=== PATIENT | female | born 1985 | race Two or more races ===

== ENCOUNTER 2022-12-10 08:18 | Emergency (ER) | payer OTHER, BC ==
[2022-12-10 08:24] VITALS: TEMP 98
[2022-12-10] MEDS ORDERED: IBUPROFEN 400 MG TAB PO STA (08:39)
[2022-12-10] MEDS ORDERED: ACETAMINOPHEN TAB 500 MG TAB PO STA (08:39)
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
--- NOTE | 2022-12-10 09:10 | XR ---
EXAMINATION TYPE: XR shoulder complete RT DATE OF EXAM: 12/10/2022 CLINICAL HISTORY: pain TECHNIQUE: Three views of the right shoulder are obtained. COMPARISON: None FINDINGS: There is no acute fracture/dislocation evident. The acromioclavicular and glenohumeral nicholas int spaces appear within normal limits. The visualized ribs are intact and unremarkable. IMPRESSION: 1. There is no acute fracture or dislocation. ICD 10 NO FRACTURE, INITIAL EVALUATION
--- NOTE | 2022-12-10 09:11 | XR ---
EXAMINATION TYPE: XR scapula RT DATE OF EXAM: 12/10/2022 COMPARISON: NONE HISTORY: Pain TECHNIQUE: 2 views of the right scapula are submitted. FINDINGS: The scapula appears to be intact without evidence for displaced fracture. No osseous lesion . Soft tissues are grossly unremarkable. IMPRESSION: Negative
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
[2022-12-10 09:42] VITALS: BP 130/78; PULSE 82; RESP 18
== END 2022-12-10 09:42 | disposition home or self-care (01) ==
LOC: EC 08:18
DX: S29.012A Strain of muscle and tendon of back wall of thorax, initial encounter (principal); J45.909 Unspecified asthma, uncomplicated; F41.9 Anxiety disorder, unspecified; Z88.7 Allergy status to serum and vaccine; Z88.5 Allergy status to narcotic agent; Z88.8 Allergy status to other drugs, medicaments and biological substances; V49.40XA Driver injured in collision with unspecified motor vehicles in traffic accident, initial encounter
CPT/HCPCS: 71046; 72125; 99284

== ENCOUNTER 2023-04-24 02:50 | Emergency (ER) | payer BC ==
[2023-04-24] MEDS ORDERED: SODIUM CHLORIDE 0.9% 1,000 ML IV STA ×2 (04:02→06:03)
--- NOTE | 2023-04-24 04:04 | ED ---
Fever HPI - General Chief Complaint: Fever Stated Complaint: Fever/body aches Time Seen by Provider: 04/24/23 03:51 Source: patient, RN notes reviewed, old records reviewed Mode of arrival: ambulatory Limitations: no limitations - History of Present Illness Initial Comments: This is a 37-year-old female to the emergency department today. This patient p resents today for evaluation regards to fever. 5 days of persistent fever. Patient states she has not I will be medications which causes her to have low immune system. Patient states she's had a persistent fever and has been tested for coronavirus negative. Patient denying any cough congestion shortness of breath, no nausea vomiting or diarrhea. MD Complaint: fever, malaise, weakness -: days(s) (5) Temperature Source: oral Context: sick contacts, on immunosuppressant(s) Associated Symptoms: rigors, myalgias Treatments Prior to Arrival: Acetaminophen, Ibuprofen - Related Data Previous Rx's Medication Instructions Recorded Cyclobenzaprine [Flexeril] 10 mg PO TID PRN #18 tablet 12/10/22 Amoxic-Pot Clav 875-125Mg 1 tab PO Q12HR #20 tablet 04/24/23 [Augmentin 875-125] Allergies Allergy/AdvReac Type Severity Reaction Status Date / Time brompheniramine Allergy Unknown Verified 12/10/22 08:24 [From Dimetapp (brompheniramine-PPA)] codeine Allergy Unknown Verified 12/10/22 08:24 dimenhydrinate Allergy Unknown Verified 12/10/22 08:24 [From Dramamine] phenylpropanolamine Allergy Unknown Verified 12/10/22 08:24 [From Dimetapp (brompheniramine-PPA)] tetanus toxoid, adsorbed Allergy Unknown Verified 12/10/22 08:24 Review of Systems ROS Statement: Those systems with pertinent positive or pertinent negative responses have been documented in the HPI. ROS Other: All systems not noted in ROS Statement are negative. Past Medical History Past Medical History: Asthma Additional Past Medical History / Comment(s): Colitis, HS History of Any Multi-Drug Resistant Organisms: None Reported Past Surgical History: Section Past Psychological History: Anxiety Smoking Status: Never smoker Past Alcohol Use History: Occasional Past Drug Use History: None Reported General Exam Limitations: no limitations General appearance: alert, in no apparent distress Head exam: Present: atraumatic, normocephalic, normal inspection Eye exam: Present: normal appearance, PERRL, EOMI. Absent: scleral icterus, conjunctival injection, periorbital swelling ENT exam: Present: normal exam, mucous membranes moist Neck exam: Present: normal inspection. Absent: tenderness, meningismus, lymphadenopathy Respiratory exam: Present: normal lung sounds bilaterally. Absent: respiratory distress, wheezes, rales, rhonchi, stridor Cardiovascular Exam: Present: regular rate, normal rhythm, normal heart sounds. Absent: systolic murmur, diastolic murmur, rubs, gallop, clicks GI/Abdominal exam: Present: soft, normal bowel sounds. Absent: distended, tenderness, guarding, rebound, rigid Extremities exam: Present: normal inspection, full ROM, normal capillary refill. Absent: tenderness, pedal edema, joint swelling, calf tenderness Back exam: Present: normal inspection Neurological exam: Present: alert, oriented X3, CN II-XII intact Psychiatric exam: Present: normal affect, normal mood Skin exam: Present: warm, dry, intact, normal color. Absent: rash Course Vital Signs 04/24/23 04/24/23 04/24/23 03:05 05:00 06:50 Temperature 100 F H 98.2 F 98.0 F Pulse Rate 113 H 92 Respiratory 18 16 Rate Blood Pressure 112/75 111/70 O2 Sat by Pulse 98 100 Oximetry - Reevaluation(s) Reevaluation #1: 04/24/23 05:28 Medical record is reviewed Reevaluation #2: Patient symptoms are improved here in the ER Reevaluation #3: Patient informed results questions answered Reevaluation #4: 04/24/23 05:28 Was pt. sent in by a medical professional or institution (, PA, CAR CONDITIONER, urgent care, hospital, or correction...) When possible be specific @ -no Did you speak to anyone other than the patient for history (EMS, parent, family, police, friend...)? What history was obtained from this source @ -no Did you review nursing and triage notes (agree or disagree)? Why? @ -agree Are old charts reviewed (outside hosp., previous admission, EMS record, old EKG, old radiological studies, urgent care reports/EKG's, correction records)? Report findings @ -yes Differential Diagnosis (chest pain, altered mental status, abdominal pain women, abdominal pain men, vaginal bleeding, weakness, fever, dyspnea, syncope, headache, dizziness, GI bleed, back pain, seizure, CVA, palpatations, mental health, musculoskeletal)? @ -prior EKG interpreted by me (3pts min.). @ -no X-rays interpreted by me (1pt min.). @ -yes CT interpreted by me (1pt min.). @ -no U/S interpreted by me (1pt. min.). @ -no What testing was considered but not performed or refused? (CT, X-rays, U/S, labs)? Why? @ -none What meds were considered but not given or refused? Why? @ -none Did you discuss the management of the patient with other professionals (professionals i.e. , PA, CAR CONDITIONER, lab, RT, psych nurse, rn social services, curing oven tender, teacher, staff mine warfare officer, case reviewer)? Give summary @ -no Was smoking cessation discussed for >3mins.? @ -no Was critical care preformed (if so, how long)? @ -no Were there social determinants of health that impacted care today? How? (Homelessness, low income, unemployed, alcoholism, drug addiction, transportation, low edu. Level, literacy, decrease access to med. care, senior living, rehab)? @ -none Was there de-escalation of care discussed even if they declined (Discuss DNR or withdrawal of care, Hospice)? DNR status @ -no What co-morbidities impacted this encounter? (DM, HTN, Smoking, COPD, CAD, Cancer, CVA, ARF, Chemo, Hep., AIDS, mental health diagnosis, sleep apnea, morbid obesity)? @ -none Was patient admitted / discharged? Hospital course, mention meds given and route, prescriptions, significant lab abnormalities, going to OR and other pertinent info. @ - 37 female to the emergency department with persistent fever patient does appear to have pneumonia which is found here in the ER. Patient also symptoms of cellulitis to the nose Patient is improved symptoms here in the ER, feeling improved and can be discharged home Discharge Undiagnosed new problem with uncertain prognosis? @ -no Drug Therapy requiring intensive monitoring for toxicity (Heparin, Nitro, Ins ulin, Cardizem)? @ -no Were any procedures done? @ -no Diagnosis/symptom? @ -Fever with pneumonia, cellulitis Acute, or Chronic, or Acute on Chronic? @ -Acute Uncomplicated (without systemic symptoms) or Complicated (systemic symptoms)? @ -Complicated Side effects of treatment? @ -no Exacerbation, Progression, or Severe Exacerbation? @ -exacerbation Poses a threat to life or bodily function? How? (Chest pain, [place], [place], pneumonia, PE, COPD, DKA, ARF, appy, cholecystitis, CVA, Diverticulitis, Homicidal, Suicidal, threat to staff... and all critical care pts) @ -yes with significant sepsis Reevaluation #5: 04/24/23 05:28 Differential Fever: Pneumonia, viral URI, endocarditis, myocarditis, pericarditis, otitis, sinusitis, peritonsillar Abscess, retropharyngeal Abscess, epiglottitis, peritonitis, appendicitis, Renate cystitis, diverticulitis, hepatitis, colitis, UTI, PID, TOA, pyelonephritis, prostatitis, epididymitis, meningitis, encepha litis, pulmonary embolism, CVA, thyroid storm, pancreatitis, adrenal crisis, cavernous sinus thrombosis, this is not meant to be an all-inclusive list. Medical Decision Making - Medical Decision Making 37 female to the emergency department with persistent fever patient does appear to have pneumonia which is found here in the ER. Patient also symptoms of cellulitis to the nose Patient is improved symptoms here in the ER, feeling improved and can be discharged home - Lab Data Result diagrams: 04/24/23 04:40 04/24/23 04:40 Lab Results 04/24/23 04/24/23 04/24/23 Range/Units 04:40 04:40 04:40 WBC 8.8 (3.8-10.6) k/uL RBC 4.20 (3.80-5.40) m/uL Hgb 12.6 (11.4-16.0) gm/dL Hct 37.1 (34.0-46.0) % MCV 88.4 (80.0-100.0) fL MCH 30.0 (25.0-35.0) pg MCHC 33.9 (31.0-37.0) g/dL RDW 12.8 (11.5-15.5) % Plt Count 198 (150-450) k/uL MPV 7.8 Neutrophils % 85 % Lymphocytes % 9 % Monocytes % 4 % Eosinophils % 1 % Basophils % 0 % Neutrophils # 7.5 (1.3-7.7) k/uL Lymphocytes # 0.8 L (1.0-4.8) k/uL Monocytes # 0.3 (0-1.0) k/uL Eosinophils # 0.1 (0-0.7) k/uL Basophils # 0.0 (0-0.2) k/uL Sodium 133 L (137-145) mmol/L Potassium 4.0 (3.5-5.1) mmol/L Chloride 104 (98-107) mmol/L Carbon Dioxide 21 L (22-30) mmol/L Anion Gap 8 mmol/L BUN 9 (7-17) mg/dL Creatinine 0.58 (0.52-1.04) mg/dL Est GFR (CKD-EPI)AfAm >90 (>60 ml/min/1.73 sqM) Est GFR (CKD-EPI)NonAf >90 (>60 ml/min/1.73 sqM) Glucose 115 H (74-99) mg/dL Plasma Lactic Acid Ronnie 0.7 (0.7-2.0) mmol/L Calcium 8.2 L (8.4-10.2) mg/dL Phosphorus 3.8 (2.5-4.5) mg/dL Magnesium 2.0 (1.6-2.3) mg/dL Total Bilirubin 0.5 (0.2-1.3) mg/dL AST 82 H (14-36) U/L ALT 46 H (4-34) U/L Alkaline Phosphatase 75 (38-126) U/L Total Protein 6.0 L (6.3-8.2) g/dL Albumin 3.1 L (3.5-5.0) g/dL Urine Color Urine Appearance (Clear) Urine pH (5.0-8.0) Ur Specific Clymer (1.001-1.035) Urine Protein (Negative) Urine Glucose (UA) (Negative) Urine Ketones (Negative) Urine Blood (Negative) Urine Nitrite (Negative) Urine Bilirubin (Negative) Urine Urobilinogen (<2.0) mg/dL Ur Leukocyte Esterase (Negative) Urine RBC (0-5) /hpf Urine WBC (0-5) /hpf Ur Squamous Epith Cells (0-4) /hpf Urine Bacteria (None) /hpf Urine Mucus (None) /hpf 04/24/23 Range/Units 06:24 WBC (3.8-10.6) k/uL RBC (3.80-5.40) m/uL Hgb (11.4-16.0) gm/dL Hct (34.0-46.0) % MCV (80.0-100.0) fL MCH (25.0-35.0) pg MCHC (31.0-37.0) g/dL RDW (11.5-15.5) % Plt Count (150-450) k/uL MPV Neutrophils % % Lymphocytes % % Monocytes % % Eosinophils % % Basophils % % Neutrophils # (1.3-7.7) k/uL Lymphocytes # (1.0-4.8) k/uL Monocytes # (0-1.0) k/uL Eosinophils # (0-0.7) k/uL Basophils # (0-0.2) k/uL Sodium (137-145) mmol/L Potassium (3.5-5.1) mmol/L Chloride (98-107) mmol/L Carbon Dioxide (22-30) mmol/L Anion Gap mmol/L BUN (7-17) mg/dL Creatinine (0.52-1.04) mg/dL Est GFR (CKD-EPI)AfAm (>60 ml/min/1.73 sqM) Est GFR (CKD-EPI)NonAf (>60 ml/min/1.73 sqM) Glucose (74-99) mg/dL Plasma Lactic Acid Ronnie (0.7-2.0) mmol/L Calcium (8.4-10.2) mg/dL Phosphorus (2.5-4.5) mg/dL Magnesium (1.6-2.3) mg/dL Total Bilirubin (0.2-1.3) mg/dL AST (14-36) U/L ALT (4-34) U/L Alkaline Phosphatase (38-126) U/L Total Protein (6.3-8.2) g/dL Albumin (3.5-5.0) g/dL Urine Color Yellow Urine Appearance Clear (Clear) Urine pH 5.5 (5.0-8.0) Ur Specific [place] 1.011 (1.001-1.035) Urine Protein Negative (Negative) Urine Glucose (UA) Negative (Negative) Urine Ketones Negative (Negative) Urine Blood Large H (Negative) Urine Nitrite Negative (Negative) Urine Bilirubin Negative (Negative) Urine Urobilinogen <2.0 (<2.0) mg/dL Ur Leukocyte Esterase Negative (Negative) Urine RBC 24 H (0-5) /hpf Urine WBC 2 (0-5) /hpf Ur Squamous Epith Cells <1 (0-4) /hpf Urine Bacteria Occasional H (None) /hpf Urine Mucus Rare H (None) /hpf - Radiology Data Radiology results: report reviewed (Chest x-ray is concerning for pneumonia), image reviewed Disposition Clinical Impression: Fever, Cellulitis, Pneumonia, Weakness Disposition: HOME SELF-CARE Condition: Good Instructions (If sedation given, give patient instructions): Fever in Adults (ED) Prescriptions: Amoxic-Pot Clav 875-125Mg [Augmentin 875-125] 1 tab PO Q12HR #20 tablet Is patient prescribed a controlled substance at d/c from ED?: No Referrals: Humberto Vanessa MD [Primary Care Provider] - 1-2 days Time of Disposition: 06:45
[2023-04-24 04:54] LABS: Basophils % (A) 0 %; Eosinophils # (A) 0.1 k/uL (0-0.7); Eosinophils % (A) 1 %; HCT 37.1 % (34.0-46.0); HGB 12.6 gm/dL (11.4-16.0); Lymphocytes # (A) 0.8 k/uL (1.0-4.8); Lymphocytes % (A) 9 %; MCHC 33.9 g/dL (31.0-37.0); MCV 88.4 fL (80.0-100.0); Mean Platelet Volume 7.8; Monocytes # (A) 0.3 k/uL (0-1.0); Monocytes % (A) 4 %; Neutrophils # (A) 7.5 k/uL (1.3-7.7); Neutrophils % (A) 85 %; Platelet Count 198 k/uL (150-450); RDW 12.8 % (11.5-15.5); WBC 8.8 k/uL (3.8-10.6)
[2023-04-24 05:06] LABS: ALT 46 U/L (4-34); AST 82 U/L (14-36); African American GFR (CKD) >90 (>60 ml/min/1.73 sqM); Albumin 3.1 g/dL (3.5-5.0); Alkaline Phosphatase 75 U/L (38-126); Anion Gap 8 mmol/L; Blood Urea Nitrogen 9 mg/dL (7-17); Calcium 8.2 mg/dL (8.4-10.2); Carbon Dioxide 21 mmol/L (22-30); Chloride 104 mmol/L (98-107); Glucose 115 mg/dL (74-99); Non-African American GFR(CKD) >90 (>60 ml/min/1.73 sqM); Phosphorus 3.8 mg/dL (2.5-4.5); Sodium 133 mmol/L (137-145); Total Bilirubin 0.5 mg/dL (0.2-1.3)
[2023-04-24] MEDS ORDERED: ACETAMINOPHEN IV (For NPO) 1,000 MG in EMPTY BAG 1 BAG IVPB STA (06:03)
[2023-04-24] MEDS ORDERED: IBUPROFEN IV 800 MG in SODIUM CHLORIDE 0.9% 250 ML IV ONE (06:03)
--- NOTE | 2023-04-24 06:38 | XR ---
EXAMINATION TYPE: XR chest 1V portable DATE OF EXAM: 04/24/2023 4:22 AM COMPARISON: Chest radiographs from 12/10/2022 TECHNIQUE: XR chest 1V portable Portable AP radiograph of the chest. CLINICAL INDICATION:Female, 37 years old with history of cough; FINDINGS: Lungs/Pleura: No pleural effusion or pneumothorax. Medial left upper lobe consolidation. Pulmonary vascularity: Unremarkable. Heart/mediastinum: Cardiomediastinal silhouette is unremarkable. Musculoskeletal: No acute osseous pathology. IMPRESSION: Left upper lobe consolidation concerning for pneumonia.
[2023-04-24 06:40] LABS: Appearance,Urine Clear (Clear); Bacteria,Urine Occasional /hpf; Bilirubin,Urine Negative (Negative); Blood,Urine Large (Negative); Glucose,Urine (UA) Negative (Negative); Ketones,Urine Negative (Negative); Leukocyte Esterase,Urine Negative (Negative); Mucus,Urine Rare /hpf; Nitrite,Urine Negative (Negative); PH, Urine 5.5 (5.0-8.0); Protein,Urine Negative (Negative); RBC,Urine 24 /hpf (0-5); Specific Gravity,Urine 1.011 (1.001-1.035); Squamous Epithelial Cell,Urine <1 /hpf (0-4); Urobilinogen,Urine <2.0 mg/dL (<2.0); WBC,Urine 2 /hpf (0-5)
[2023-04-24 06:42] LABS: Color,Urine Yellow
[2023-04-24] MEDS ORDERED: MUPIROCIN 2% OINT 22 GM TUBE TOPICAL STA (06:46)
[2023-04-24] MEDS ORDERED: AMOXIC-POT CLAV 875-125MG 1 EACH TAB PO STA (06:46)
[2023-04-24 06:51] VITALS: BP 111/70; PULSE 92; RESP 16; TEMP 98
== END 2023-04-24 07:40 | disposition home or self-care (01) ==
LOC: EC 02:50
DX: J18.9 Pneumonia, unspecified organism (principal); J34.0 Abscess, furuncle and carbuncle of nose; R53.1 Weakness; B96.89 Other specified bacterial agents as the cause of diseases classified elsewhere; J45.909 Unspecified asthma, uncomplicated; Z88.5 Allergy status to narcotic agent; Z88.7 Allergy status to serum and vaccine; Z88.8 Allergy status to other drugs, medicaments and biological substances
CPT/HCPCS: 36415; 80053; 83605; 83735; 84100; 85025; 81001; 87040; 71045; 99284; 96365; 96367; 96361; J0131; J1741

== ENCOUNTER 2023-09-11 16:14 | Inpatient (IN) | payer BC ==
[2023-09-11] MEDS ORDERED: ONDANSETRON 4 MG/2 ML VIAL IVP STA (16:32)
[2023-09-11] MEDS ORDERED: SODIUM CHLORIDE 0.9% 1,000 ML IV STA (16:32)
[2023-09-11] MEDS ORDERED: MORPHINE SULFATE 4 MG/ML SYRINGE IV STA (16:32)
[2023-09-11] MEDS ORDERED: ACETAMINOPHEN IV (For NPO) 1,000 MG in EMPTY BAG 1 BAG IVPB STA (16:33)
--- NOTE | 2023-09-11 16:34 | ED ---
Abdominal Pain HPI - General Chief Complaint: Vaginal Bleeding Stated Complaint: Vaginal Bleeding Time Seen by Provider: 09/11/23 16:16 Source: EMS, RN notes reviewed, old records reviewed Mode of arrival: EMS Limitations: no limitations - History of Present Illness Initial Comments: This is a 38-year-old female to the emergency department for evaluation today. Patient presents today for evaluation regards to significant amount of vaginal bleeding. Vaginal history. And having significant vaginal bleeding today. Patient did feel ripping sensation prior to this bleeding while bending over. MD Complaint: abdominal pain -: days(s) Location: diffuse, suprapubic Radiation: suprapubic Severity: severe Severity scale (1-10): 10 Quality: stabbing Consistency: constant Worsens With: nothing Associated Symptoms: denies other symptoms Treatments Prior to Arrival: other (0) - Related Data Home Medications Medication Instructions Recorded Confirmed No Known Home Medications 09/11/23 09/11/23 Allergies Allergy/AdvReac Type Severity Reaction Status Date / Time brompheniramine Allergy Unknown Verified 09/11/23 18:49 [From Dimetapp (brompheniramine-PPA)] codeine Allergy Unknown Verified 09/11/23 18:49 dimenhydrinate Allergy Unknown Verified 09/11/23 18:49 [From Dramamine] phenylpropanolamine Allergy Unknown Verified 09/11/23 18:49 [From Dimetapp (brompheniramine-PPA)] tetanus toxoid, adsorbed Allergy Unknown Verified 09/11/23 18:49 Review of Systems ROS Statement: Those systems with pertinent positive or pertinent negative responses have been documented in the HPI. ROS Other: All systems not noted in ROS Statement are negative. Past Medical History Past Medical History: Asthma Additional Past Medical History / Comment(s): Colitis, HS History of Any Multi-Drug Resistant Organisms: None Reported Past Surgical History: Section, Hysterectomy Past Psychological History: Anxiety Smoking Status: Never smoker Past Alcohol Use History: Occasional Past Drug Use History: None Reported General Exam Limitations: no limitations General appearance: alert, in no apparent distress, anxious, in distress Head exam: Present: atraumatic, normocephalic, normal inspection Eye exam: Present: normal appearance, PERRL, EOMI. Absent: scleral icterus, conjunctival injection, periorbital swelling ENT exam: Present: normal exam, mucous membranes moist Neck exam: Present: normal inspection. Absent: tenderness, meningismus, lymphadenopathy Respiratory exam: Present: normal lung sounds bilaterally. Absent: respiratory distress, wheezes, rales, rhonchi, stridor Cardiovascular Exam: Present: regular rate, normal rhythm, normal heart sounds. Absent: systolic murmur, diastolic murmur, rubs, gallop, clicks GI/Abdominal exam: Present: soft, normal bowel sounds. Absent: distended, tenderness, guarding, rebound, rigid Extremities exam: Present: normal inspection, full ROM, normal capillary refill. Absent: tenderness, pedal edema, joint swelling, calf tenderness Back exam: Present: normal inspection Neurological exam: Present: alert, oriented X3, CN II-XII intact Psychiatric exam: Present: normal affect, normal mood Skin exam: Present: warm, dry, intact, normal color. Absent: rash Course Vital Signs 09/11/23 09/11/23 09/11/23 16:17 16:30 17:00 Temperature 99.1 F Pulse Rate 114 H 112 H 110 H Respiratory 20 18 18 Rate Blood Pressure 124/79 123/79 71/46 O2 Sat by Pulse 98 98 99 Oximetry 09/11/23 09/11/23 09/11/23 17:49 18:09 18:30 Temperature 98.6 F 98.3 F 98.2 F Pulse Rate 101 H 112 H 102 H Respiratory 16 18 18 Rate Blood Pressure 102/70 80/64 95/57 O2 Sat by Pulse 98 97 Oximetry - Reevaluation(s) Reevaluation #1: 09/11/23 17:34 Record is reviewed Reevaluation #2: 09/11/23 17:34 Patient having significant symptoms here in the ER syncope, near syncope. Continues to repeat that she is going to pass out Patient was placed in Trendelenburg position was significantly low blood pressure Reevaluation #3: 09/11/23 18:42 Patient informed results questions answered Reevaluation #4: Was pt. sent in by a medical professional or institution (, PA, NETWORK PLANNER, urgent care, hospital, or long-term...) When possible be specific @ -no Did you speak to anyone other than the patient for history (EMS, parent, family, police, friend...)? What history was obtained from this source @ -no Did you review nursing and triage notes (agree or disagree)? Why? @ -agree Are old charts reviewed (outside hosp., previous admission, EMS record, old EKG, old radiological studies, urgent care reports/EKG's, long-term records)? Report findings @ -yes Differential Diagnosis (chest pain, altered mental status, abdominal pain women, abdominal pain men, vaginal bleeding, weakness, fever, dyspnea, syncope, headache, dizziness, GI bleed, back pain, seizure, CVA, palpatations, mental health, musculoskeletal)? @ -prior EKG interpreted by me (3pts min.). @ -yes X-rays interpreted by me (1pt min.). @ -no CT interpreted by me (1pt min.). @ -yes positive for vaginal bleeding U/S interpreted by me (1pt. min.). @ -no What testing was considered but not performed or refused? (CT, X-rays, U/S, labs)? Why? @ -none What meds were considered but not given or refused? Why? @ -none Did you discuss the management of the patient with other professionals (professionals i.e. , PA, NETWORK PLANNER, lab, RT, psych nurse, manager social responsibility, college of education dean, teacher, international first officer, telehealth case manager)? Give summary @ -no Was smoking cessation discussed for >3mins.? @ -no Were there social determinants of health that impacted care today? How? (Homelessness, low income, unemployed, alcoholism, drug addiction, transportation, low edu. Level, literacy, decrease access to med. care, long-term, rehab)? @ -none Was there de-escalation of care discussed even if they declined (Discuss DNR or withdrawal of care, Hospice)? DNR status @ -no What co-morbidities impacted this encounter? (DM, HTN, Smoking, COPD, CAD, Cancer, CVA, ARF, Chemo, Hep., AIDS, mental health diagnosis, sleep apnea, morbid obesity)? @ -none Was patient admitted / discharged? Hospital course, mention meds given and route, prescriptions, significant lab abnormalities, going to OR and other pertinent info. @ - 38 female to the ER for evaluation of significant severe vaginal bleeding after hysterectomy. Patient has significant bleeding multiple episodes of syncope near syncope here in the ER, patient will be admitted for continued mon itoring and surgical evaluation Admitted Was critical care preformed (if so, how long)? @ -yes Undiagnosed new problem with uncertain prognosis? @ -no Drug Therapy requiring intensive monitoring for toxicity (Heparin, Nitro, Insulin, Cardizem)? @ -no Were any procedures done? @ -no Diagnosis/symptom? @ -Acute vaginal bleeding postoperative bleeding syncope Acute, or Chronic, or Acute on Chronic? @ -Acute Uncomplicated (without systemic symptoms) or Complicated (systemic symptoms)? @ -Complicated Side effects of treatment? @ -no Exacerbation, Progression, or Severe Exacerbation? @ -exacerbation Poses a threat to life or bodily function? How? (Chest pain, USA, AL, pneumonia, PE, COPD, DKA, ARF, appy, cholecystitis, CVA, Diverticulitis, Homicidal, Suicidal, threat to staff... and all critical care pts) @ -yes Reevaluation #5: 09/11/23 17:34 Differential Syncope: Valvular disease, hypertrophic cardiomyopathy, pulmonary embolism, tamponade, tachycardia, bradycardia, AL, hypovolemia, hemorrhage, dissection, anemia, intracranial hemorrhage, seizure, hypoglycemia, carbon monoxide poisoning, this is not meant to be an all-inclusive list. - Consultations Consultation #1: Spoke with Dr. Bernstein who will evaluate patient in the emergency department Dr. Bernstein did evaluate the patient in the emergency department Dr. Bernstein who will admit the patient to the hospital Medical Decision Making - Medical Decision Making 38 female to the ER for evaluation of significant severe vaginal bleeding after hysterectomy. Patient has significant bleeding multiple episodes of syncope near syncope here in the ER, patient will be admitted for continued monitoring and surgical evaluation - Lab Data Result diagrams: 09/13/23 06:27 09/12/23 07:08 Lab Results 09/11/23 09/11/23 09/11/23 Range/Units 16:30 16:34 16:34 WBC 10.1 (3.8-10.6) k/uL RBC 4.36 (3.80-5.40) m/uL Hgb 12.7 (11.4-16.0) gm/dL Hct 37.1 (34.0-46.0) % MCV 85.0 (80.0-100.0) fL MCH 29.2 (25.0-35.0) pg MCHC 34.4 (31.0-37.0) g/dL RDW 12.4 (11.5-15.5) % Plt Count 339 (150-450) k/uL MPV 7.4 Neutrophils % 58 % Lymphocytes % 33 % Monocytes % 4 % Eosinophils % 3 % Basophils % 0 % Neutrophils # 5.9 (1.3-7.7) k/uL Lymphocytes # 3.3 (1.0-4.8) k/uL Monocytes # 0.4 (0-1.0) k/uL Eosinophils # 0.3 (0-0.7) k/uL Basophils # 0.0 (0-0.2) k/uL PT 9.9 L (10.0-12.5) sec INR 0.9 (<1.2) APTT 24.3 (22.0-30.0) sec Sodium (137-145) mmol/L Potassium (3.5-5.1) mmol/L Chloride (98-107) mmol/L Carbon Dioxide (22-30) mmol/L Anion Gap mmol/L BUN (7-17) mg/dL Creatinine (0.52-1.04) mg/dL Est GFR (CKD-EPI)AfAm (>60 ml/min/1.73 sqM) Est GFR (CKD-EPI)NonAf (>60 ml/min/1.73 sqM) Glucose (74-99) mg/dL Plasma Lactic Acid Ronnie (0.7-2.0) mmol/L Calcium (8.4-10.2) mg/dL Phosphorus (2.5-4.5) mg/dL Magnesium (1.6-2.3) mg/dL Total Bilirubin (0.2-1.3) mg/dL AST (14-36) U/L ALT (4-34) U/L Alkaline Phosphatase (38-126) U/L Troponin I (0.000-0.034) ng/mL Total Protein (6.3-8.2) g/dL Albumin (3.5-5.0) g/dL Blood Type A Positive Blood Type Confirm Blood Type Recheck No Previous Record Bld Type Recheck Status CABO Indicated Antibody Screen NEGATIVE Crossmatch See Detail Spec Expiration Date 09/14/2023 - 232909/11/23 09/11/23 09/11/23 Range/Units 16:34 16:34 16:34 WBC (3.8-10.6) k/uL RBC (3.80-5.40) m/uL Hgb (11.4-16.0) gm/dL Hct (34.0-46.0) % MCV (80.0-100.0) fL MCH (25.0-35.0) pg MCHC (31.0-37.0) g/dL RDW (11.5-15.5) % Plt Count (150-450) k/uL MPV Neutrophils % % Lymphocytes % % Monocytes % % Eosinophils % % Basophils % % Neutrophils # (1.3-7.7) k/uL Lymphocytes # (1.0-4.8) k/uL Monocytes # (0-1.0) k/uL Eosinophils # (0-0.7) k/uL Basophils # (0-0.2) k/uL PT (10.0-12.5) sec INR (<1.2) APTT (22.0-30.0) sec Sodium 135 L (137-145) mmol/L Potassium 3.7 (3.5-5.1) mmol/L Chloride 105 (98-107) mmol/L Carbon Dioxide 23 (22-30) mmol/L Anion Gap 7 mmol/L BUN 19 H (7-17) mg/dL Creatinine 0.68 (0.52-1.04) mg/dL Est GFR (CKD-EPI)AfAm >90 (>60 ml/min/1.73 sqM) Est GFR (CKD-EPI)NonAf >90 (>60 ml/min/1.73 sqM) Glucose 110 H (74-99) mg/dL Plasma Lactic Acid Ronnie 1.2 (0.7-2.0) mmol/L Calcium 8.9 (8.4-10.2) mg/dL Phosphorus 2.6 (2.5-4.5) mg/dL Magnesium 1.8 (1.6-2.3) mg/dL Total Bilirubin 0.5 (0.2-1.3) mg/dL AST 25 (14-36) U/L ALT 20 (4-34) U/L Alkaline Phosphatase 52 (38-126) U/L Troponin I <0.012 (0.000-0.034) ng/mL Total Protein 6.3 (6.3-8.2) g/dL Albumin 3.7 (3.5-5.0) g/dL Blood Type Blood Type Confirm Blood Type Recheck Bld Type Recheck Status Antibody Screen Crossmatch Spec Expiration Date 09/11/23 Range/Units 16:35 WBC (3.8-10.6) k/uL RBC (3.80-5.40) m/uL Hgb (11.4-16.0) gm/dL Hct (34.0-46.0) % MCV (80.0-100.0) fL MCH (25.0-35.0) pg MCHC (31.0-37.0) g/dL RDW (11.5-15.5) % Plt Count (150-450) k/uL MPV Neutrophils % % Lymphocytes % % Monocytes % % Eosinophils % % Basophils % % Neutrophils # (1.3-7.7) k/uL Lymphocytes # (1.0-4.8) k/uL Monocytes # (0-1.0) k/uL Eosinophils # (0-0.7) k/uL Basophils # (0-0.2) k/uL PT (10.0-12.5) sec INR (<1.2) APTT (22.0-30.0) sec Sodium (137-145) mmol/L Potassium (3.5-5.1) mmol/L Chloride (98-107) mmol/L Carbon Dioxide (22-30) mmol/L Anion Gap mmol/L BUN (7-17) mg/dL Creatinine (0.52-1.04) mg/dL Est GFR (CKD-EPI)AfAm (>60 ml/min/1.73 sqM) Est GFR (CKD-EPI)NonAf (>60 ml/min/1.73 sqM) Glucose (74-99) mg/dL Plasma Lactic Acid Ronnie (0.7-2.0) mmol/L Calcium (8.4-10.2) mg/dL Phosphorus (2.5-4.5) mg/dL Magnesium (1.6-2.3) mg/dL Total Bilirubin (0.2-1.3) mg/dL AST (14-36) U/L ALT (4-34) U/L Alkaline Phosphatase (38-126) U/L Troponin I (0.000-0.034) ng/mL Total Protein (6.3-8.2) g/dL Albumin (3.5-5.0) g/dL Blood Type Blood Type Confirm A Positive Blood Type Recheck Bld Type Recheck Status Antibody Screen Crossmatch Spec Expiration Date - EKG Data -: EKG Interpreted by Me (EKG is sinus tachycardia 109 [place] 139 QRS 80 QTC 394) - Radiology Data Radiology results: report reviewed (CT abdomen and pelvis does show positive acute and subacute bleed), image reviewed Critical Care Time Critical Care Time: Yes Total Critical Care Time: 31 Disposition Clinical Impression: Postoperative vaginal bleeding, Postoperative vaginal bleeding following genitourinary procedure, Syncope, Shock Disposition: ADMITTED IP TO THIS HOSP Condition: Critical Is patient prescribed a controlled substance at d/c from ED?: No Time of Disposition: 18:40
[2023-09-11 16:48] LABS: Basophils % (A) 0 %; Eosinophils # (A) 0.3 k/uL (0-0.7); Eosinophils % (A) 3 %; HCT 37.1 % (34.0-46.0); HGB 12.7 gm/dL (11.4-16.0); Lymphocytes # (A) 3.3 k/uL (1.0-4.8); Lymphocytes % (A) 33 %; MCH 29.2 pg (25.0-35.0); MCHC 34.4 g/dL (31.0-37.0); Mean Platelet Volume 7.4; Monocytes # (A) 0.4 k/uL (0-1.0); Monocytes % (A) 4 %; Neutrophils # (A) 5.9 k/uL (1.3-7.7); Neutrophils % (A) 58 %; Platelet Count 339 k/uL (150-450); RBC 4.36 m/uL (3.80-5.40); RDW 12.4 % (11.5-15.5); WBC 10.1 k/uL (3.8-10.6)
[2023-09-11 16:58] LABS: INR 0.9 (<1.2); Partial Thromboplastin Time 24.3 sec (22.0-30.0); Prothrombin Time 9.9 sec (10.0-12.5)
[2023-09-11 16:59] LABS: ALT 20 U/L (4-34); AST 25 U/L (14-36); African American GFR (CKD) >90 (>60 ml/min/1.73 sqM); Albumin 3.7 g/dL (3.5-5.0); Alkaline Phosphatase 52 U/L (38-126); Anion Gap 7 mmol/L; Blood Urea Nitrogen 19 mg/dL (7-17); Calcium 8.9 mg/dL (8.4-10.2); Carbon Dioxide 23 mmol/L (22-30); Chloride 105 mmol/L (98-107); Glucose 110 mg/dL (74-99); Magnesium 1.8 mg/dL (1.6-2.3); Non-African American GFR(CKD) >90 (>60 ml/min/1.73 sqM); Phosphorus 2.6 mg/dL (2.5-4.5); Potassium 3.7 mmol/L (3.5-5.1); Sodium 135 mmol/L (137-145); Total Bilirubin 0.5 mg/dL (0.2-1.3); Total Protein 6.3 g/dL (6.3-8.2)
--- NOTE | 2023-09-11 17:11 | CT ---
EXAMINATION TYPE: CT abdomen pelvis w con DATE OF EXAM: 09/11/2023 COMPARISON: The HISTORY: vaginal bleeding [address] DLP: 1083.8 mGycm CONTRAST: CT scan of the abdomen and pelvis is performed without Oral Contrast and with IV Contrast, patient in jected with 100 mL of Isovue 300. FINDINGS: LUNG BASES-: No visible nodule. No infiltrate. LIVER/GB: Hysterectomy changes noted No space occupying hepatic lesion. Biliary tree is of normal caliber. PANCREAS: No inflammation. No distinct mass. SPLEEN: No splenic enlargement. No lesion seen. ADRENALS: No nodule. No thickening. KIDNEYS/BLADDER: No hydronephrosis. No nephrolithiasis. No distinct renal mass. Urinary bladder g rossly unremarkable. BOWEL: Normal appendix. Normal bowel caliber. No inflammation. GENITAL ORGANS: At The site of hysterectomy there is a collection noted measuring approximately 9.8 x 6.1 x 6.1 cm with Hounsfield unit measurement of approximately 45 felt to reflect underlying nonacut e hemorrhage. There is a focus of hyperdensity seen on axial image 67 of 109 which may reflect an are a of active hemorrhage. There is also peripheral hyperdensity noted. Infected collection felt to be l ess likely LYMPH NODES: No greater than 1cm abdominal or pelvic lymph nodes are appreciated. AORTA: No significant abnormality. OSSEOUS STRUCTURES: No significant abnormality is seen. OTHER: No significant additional abnormality is seen. IMPRESSION: 1. At The site of hysterectomy there is a collection noted measuring approximately 9.8 x 6.1 x 6.1 cm with Hounsfield unit measurement of approximately 45 felt to reflect underlying nonacute hemorrhage. There is a focus of hyperdensity seen on axial image 67 of 109 which may reflect an area of active h emorrhage. There is also peripheral hyperdensity noted. Infected collection felt to be less likely al though not entirely excluded.
[2023-09-11] MEDS ORDERED: NALOXONE 0.4 MG/ML 1 ML VIAL IV PRN (18:38)
[2023-09-11] MEDS ORDERED: MORPHINE SULFATE 4 MG/ML SYRINGE IV PRN (18:38)
[2023-09-11] MEDS ORDERED: ONDANSETRON 4 MG/2 ML VIAL IVP PRN (18:38)
[2023-09-11] MEDS ORDERED: SODIUM CHLORIDE 0.9% 1,000 ML IV SCH (18:45)
[2023-09-11] MEDS ORDERED: PANTOPRAZOLE 40 MG/10 ML VIAL IV SCH (18:45)
[2023-09-11] MEDS ORDERED: LACTATED RINGERS 1,000 ML IV ONE (18:48)
[2023-09-11] MEDS ORDERED: ACETAMINOPHEN IV (For NPO) 1,000 MG in EMPTY BAG 1 BAG IVPB PRN (18:49)
--- NOTE | 2023-09-11 19:07 | P.HPOB ---
History of Present Illness H&P Date: 09/11/23 Chief Complaint: Vaginal bleeding, status post hysterectomy This patient is a 38-year-old 1 para 1 female who presented to [facility] emergency department with complaints of vaginal bleeding that started earlier this afternoon. Patient states that she had a robotic this did vaginal hysterectomy approximately [address] Haywood at [facility]. Patient states that this hysterectomy was done for an abnormal Pap smear/YOGI-3. Patient currently did well postoperatively and did see her physician for a vaginal exam in the office and apparently all was well with the exception of some sutures. Patient states that this afternoon she bent over and began having profuse bright red vaginal bleeding. Patient was subsequently brought to the emergency department for evaluation. Patient denies intercourse or anything placed per vagina. 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 She does not see a local machine operator replanter here in [place]. Review of Systems Constitutional: Reports as per HPI Gastrointestinal: Reports as per HPI Genitourinary: Reports as per HPI, Reports abnormal vaginal bleeding Psychiatric: Reports anxiety Past Medical History Past Medical History: Asthma Additional Past Medical History / Comment(s): Colitis, HS History of Any Multi-Drug Resistant Organisms: None Reported Past Surgical History: Section, Hysterectomy Past Anesthesia/Blood Transfusion Reactions: No Reported Reaction Past Psychological History: Anxiety Smoking Status: Never smoker Past Alcohol Use History: Occasional Past Drug Use History: None Reported Medications and Allergies Home Medications Medication Instructions Recorded Confirmed Type No Known Home Medications 09/11/23 09/11/23 History Allergies Allergy/AdvReac Type Severity Reaction Status Date / Time brompheniramine Allergy Unknown Verified 09/11/23 18:49 [From Dimetapp (brompheniramine-PPA)] codeine Allergy Unknown Verified 09/11/23 18:49 dimenhydrinate Allergy Unknown Verified 09/11/23 18:49 [From Dramamine] phenylpropanolamine Allergy Unknown Verified 09/11/23 18:49 [From Dimetapp (brompheniramine-PPA)] tetanus toxoid, adsorbed Allergy Unknown Verified 09/11/23 18:49 Exam Vital Signs Temp Pulse Resp BP Pulse Ox 09/11/23 18:09 98.3 F 112 H 18 80/64 09/11/23 17:49 98.6 F 101 H 16 102/70 98 09/11/23 17:00 110 H 18 71/46 99 09/11/23 16:30 112 H 18 123/79 98 09/11/23 16:17 99.1 F 114 H 20 124/79 98 Intake and Output 09/11/23 09/11/23 09/11/23 06:59 14:59 22:59 Intake Total 0 Balance 0 Intake: Blood Product 0 Unit 0 Other: Weight 86.183 kg - OBG Physical Exam Abdomen: bowel sounds normal (Abdominoplasty scar), no diffuse tenderness, no bruit present, no guarding noted, no hepatomegaly, no splenomegaly, no mass Vulva: both: normal Vagina: Patient has approximately 400 mL of dark red clot in the vagina which is evacua maryanne. There is a clot at the vaginal apex and there does not appear to be any active bleeding at this time. Cervix: absent Uterus: absent Results CT shows a 9 cm x 6 cm collection at the vaginal apex consistent with probable hematoma Result Diagrams: 09/11/23 16:34 09/11/23 16:34 Abnormal Lab Results - Last 24 Hours (Table) 09/11/23 09/11/23 09/11/23 Range/Units 16:30 16:34 16:34 PT 9.9 L (10.0-12.5) sec Sodium 135 L (137-145) mmol/L BUN 19 H (7-17) mg/dL Glucose 110 H (74-99) mg/dL Crossmatch See Detail Assessment and Plan Assessment: This is a 38-year-old 1 para 1 female status post robotic-assisted vaginal hysterectomy approximately 3 weeks ago with acute episode of vaginal bleeding most likely from the vaginal cuff. At this time she is been given 1 unit of packed red blood cell per the ER physician due to being hypotensive and tachycardic upon arrival. Initial CBC shows a hemoglobin 12.7 however this most likely is not field marketing representative of her current state. I was able to evacuate all the clots from the vagina and place the packing in the vagina (the dictated procedure note). Patient is currently stable. Plan is to admit this patient for observation, serial CBCs, IV fluids, and continue nothing by mouth. If she were to continue hemorrhaging she would need to go to the operating room for exam under anesthesia, although I do not think this is indicated at this time. I'm also going to place her on IV antibiotics. I discussed the treatment plan with the patient and her family and all the questions of an answered and they agree with current treatment plan. (1) Postoperative vaginal bleeding Current Visit: Yes Status: Acute Code(s): [id number] - SNOMED Code(s): 851034137
--- NOTE | 2023-09-11 20:47 | P.PCN ---
Date of Procedure: 09/11/23 Preoperative Diagnosis: Late post-operative bleeding Postoperative Diagnosis: Same Procedure(s) Performed: Vaginal packing Surgeon: Kalin Bernstein Estimated Blood Loss (ml): 0 Pathology: none sent Disposition: floor Description of Procedure: Examination is done with speculum in the ER. Approximately 400 cc of dark red clot is removed from the vagina with ring forceps. Vaginal cuff is visualized. Small area of bleeding at cuff with clot. I placed 1" vaginal packing with good results. Will leave in overnite and observe with plans to remove in the morning. Patient tolerated well.
[2023-09-11 23:00] LABS: Basophils % (A) 0 %; Eosinophils % (A) 0 %; HCT 31.7 % (34.0-46.0); HGB 11.1 gm/dL (11.4-16.0); Lymphocytes # (A) 1.8 k/uL (1.0-4.8); Lymphocytes % (A) 12 %; MCH 29.4 pg (25.0-35.0); MCHC 34.9 g/dL (31.0-37.0); MCV 84.3 fL (80.0-100.0); Mean Platelet Volume 7.5; Monocytes # (A) 0.4 k/uL (0-1.0); Monocytes % (A) 2 %; Neutrophils % (A) 85 %; Platelet Count 315 k/uL (150-450); RBC 3.76 m/uL (3.80-5.40); RDW 13.6 % (11.5-15.5); WBC 15.4 k/uL (3.8-10.6)
--- NOTE | 2023-09-12 07:33 | P.PN ---
Progress Note - Text Progress Note Date: 09/12/23 Hospital day #2. Patient was resting overnight without new complaints. CBC last evening after her unit of blood showed a hemoglobin 11.1 and repeat is currently pending. I do anticipate this to be in the 9-10 range. There was no significant bleeding from her vaginal packing last evening and I did remove the vaginal packing this morning. Plan today is to check a CBC, we'll encourage ambulation and allow to showers loss her bleeding is okay. Due to the significant amount of bleeding that she had yesterday I recommended that she stay today for observation. She understands that she began bleeding heavily again she could require either repeat packing are examination under anesthesia.
[2023-09-12] MEDS ORDERED: ONDANSETRON 4 MG TAB PO PRN (07:49)
[2023-09-12 07:59] LABS: Basophils % (A) 0 %; Eosinophils # (A) 0.2 k/uL (0-0.7); Eosinophils % (A) 2 %; HCT 26.6 % (34.0-46.0); Lymphocytes # (A) 2.5 k/uL (1.0-4.8); Lymphocytes % (A) 24 %; MCHC 34.3 g/dL (31.0-37.0); MCV 84.5 fL (80.0-100.0); Mean Platelet Volume 7.3; Monocytes # (A) 0.5 k/uL (0-1.0); Monocytes % (A) 4 %; Neutrophils # (A) 7.3 k/uL (1.3-7.7); Neutrophils % (A) 69 %; Platelet Count 260 k/uL (150-450); RBC 3.15 m/uL (3.80-5.40); RDW 13.9 % (11.5-15.5); WBC 10.7 k/uL (3.8-10.6)
[2023-09-12 08:03] LABS: HGB 9.1 gm/dL (11.4-16.0)
[2023-09-12 08:13] LABS: ALT 13 U/L (4-34); AST 18 U/L (14-36); African American GFR (CKD) >90 (>60 ml/min/1.73 sqM); Albumin 2.5 g/dL (3.5-5.0); Alkaline Phosphatase 39 U/L (38-126); Anion Gap 1 mmol/L; Blood Urea Nitrogen 16 mg/dL (7-17); Calcium 7.7 mg/dL (8.4-10.2); Carbon Dioxide 24 mmol/L (22-30); Chloride 109 mmol/L (98-107); Glucose 88 mg/dL (74-99); Non-African American GFR(CKD) >90 (>60 ml/min/1.73 sqM); Potassium 3.6 mmol/L (3.5-5.1); Sodium 134 mmol/L (137-145); Total Bilirubin 0.7 mg/dL (0.2-1.3); Total Protein 4.6 g/dL (6.3-8.2)
[2023-09-12] MEDS: ACETAMINOPHEN TAB 325 MG TAB PO PRN ×2 (08:48→19:54)
--- NOTE | 2023-09-13 06:37 | P.PN ---
Progress Note - Text Progress Note Date: 09/13/23 Hospital day #3. Patient rested yesterday and overnight without new complaints and no significant bleeding. Vital signs are stable and she is afebrile. CBC this morning is pending. I impression is that this patient's had an acute postoperative bleed, late in nature, and this has now resolved with vaginal packing which again has been removed. Patient is ambulating, urinating, and using the bathroom without difficulty. I believe she is stable for discharge home follow up with her primary entry level accountant today.
[2023-09-13 06:40] LABS: Basophils % (A) 0 %; Eosinophils # (A) 0.3 k/uL (0-0.7); Eosinophils % (A) 4 %; HGB 8.7 gm/dL (11.4-16.0); Lymphocytes # (A) 2.1 k/uL (1.0-4.8); Lymphocytes % (A) 28 %; MCH 29.6 pg (25.0-35.0); MCHC 34.7 g/dL (31.0-37.0); MCV 85.5 fL (80.0-100.0); Mean Platelet Volume 8.2; Monocytes # (A) 0.3 k/uL (0-1.0); Monocytes % (A) 4 %; Neutrophils # (A) 4.8 k/uL (1.3-7.7); Neutrophils % (A) 63 %; Platelet Count 228 k/uL (150-450); RBC 2.93 m/uL (3.80-5.40); RDW 13.9 % (11.5-15.5); WBC 7.7 k/uL (3.8-10.6)
--- NOTE | 2023-09-13 06:42 | P.DS ---
Providers Date of admission: 09/11/23 18:38 Expected date of discharge: 09/13/23 Attending physician: Kalin Bernstein Primary care physician: Humberto Vanessa - Discharge Diagnosis(es) (1) Postoperative vaginal bleeding Current Visit: Yes Status: Acute Hospital Course: Please see dictated H&P on this patient's admission. In brief summary this is a pleasant 38-year-old 1 para 1 female status post robotic hysterectomy approximately 3 weeks ago at outside facility who presented to our emergency department with complaints of profuse vaginal bleeding. Patient and evacuation of hematoma and vaginal packing in the emergency department by myself. She was given 1 unit of packed red blood cells per the emergency department and subsequent hemoglobin was 9.1. Patient was observed for 24 hours status post removal of her packing and continued to do well without significant bleeding. Of note she did have a CAT scan that showed a 9.0 cm hematoma at the vaginal apex. Upon discharge advised the patient to follow up with her primary physician this week and will need to have repeat imaging and close observation. She acknowledged that she would call them today. Procedures: Evacuation of hematoma and vaginal packing Patient Condition at Discharge: Fair Plan - Discharge Summary New Discharge Prescriptions: No Action No Known Home Medications Discharge Medication List No Known Home Medications 09/11/23 [History] Follow up Appointment(s)/Referral(s): Los Haywood MD [REFERRING] - 1-2 Days (Please contact Dr. Haywood's office today to see him sometime this week for follow-up) Patient Instructions/Handouts: Postoperative Bleeding (DC) Activity/Diet/Wound Care/Special Instructions: No strenuous activities or heavy lifting for 3-6 weeks. No intercourse or anything per vagina for 6 weeks. Please contact your primary provider today for a follow-up in 1-2 days. Discharge Disposition: HOME SELF-CARE
[2023-09-13] MEDS: ACETAMINOPHEN TAB 325 MG TAB PO PRN (06:45)
[2023-09-13 08:31] VITALS: BP 103/65; PULSE 88; RESP 20; TEMP 98.7
--- NOTE | 2023-09-15 16:33 | CDI ---
Documentation Clarification Form Date: 09/15/2023 04:23:35 PM From: Gale Bai Admit Date: 09/11/2023 06:38:00 PM Patient Name: Angel Friedman Visit Number: [id number] Discharge Date: 09/13/2023 09:50:00 AM ATTENTION: The Clinical Documentation Specialists (CDI) and [facility] Coding Staff appreciate your assistance in clarifying documentation. Please respond to the clarification below the line at the bottom and electronically sign. The CDI & [facility] Coding staff will review the response and follow-up if needed. Please note: Queries are made part of the Legal Health Record. If you have any questions, please contact the author of this message via ITS. Dr. Kalin Bernstein Your patient has an abnormal lab value: HGB 8.7 09/13/23. Please clarify if there is an additional diagnosis and/or clinical significance related to this value. History/Risk Factors: patient is a 38 year old female who recently had a robotic vaginal hysterectomy. This was performed 3 weeks prior to admit. Patient did well postoperatively, however presented due to having bright red vaginal bleeding. Clinical indicators: presented with profuse bright red vaginal bleeding. Patient is hypotensive and tachycardia. Was diagnosed with postoperative vaginal bleeding and hematoma. Patient underwent vaginal packing. Lab: HGB 09/11/23: 8.7, HGB 09/13/23: 8.7 Treatment: 1 unit PRBC, vaginal packing Is there an additional diagnosis and/or clinical significance related to the above lab result/information? [ X] Acute post hemorrhagic blood loss anemia [ ] No additional diagnosis/Not clinically significant [ ] Other, please specify [ ] Unable to determine MTDD
--- NOTE | 2023-09-21 16:04 | CDI ---
Documentation Clarification Form Date: 09/21/2023 03:31:45 PM From: Gale Bai Admit Date: 09/11/2023 06:38:00 PM Patient Name: Angel Friedman Visit Number: [id number] Discharge Date: 09/13/2023 09:50:00 AM ATTENTION: The Clinical Documentation Specialists (CDI) and [facility] Coding Staff appreciate your assistance in clarifying documentation. Please respond to the clarification below the line at the bottom and electronically sign. The CDI & [facility] Coding staff will review the response and follow-up if needed. Please note: Queries are made part of the Legal Health Record. If you have any questions, please contact the author of this message via ITS. Dr. Kalin Bernstein Your patient presented with significant vaginal bleeding, and was having significant symptoms in the ED. Per ED documentation Dr Brandon 09/11/23, She was near-syncope, felt as if she was going to pass out. Was placed in the Trendelenburg position and blood pressure was significantly low. Diagnosed with postoperative vaginal bleeding and shock. Based on this information and the findings below, is there an additional diagnosis that is clinically appropriate for this patient? Patient history/risk factors: patient is a 38 year old female who recently underwent a robotic vaginal hysterectomy 3 weeks ago due to an abnormal pap smear. She did well postoperatively and had a follow up vaginal exam in the office. Patient bent over and began having profuse bright red vaginal bleeding. Clinical Indicators: patient was having vaginal bleeding, was hypotensive, tachycardic, and feeling faint. HGB 09/11/23 12.7, HGB 09/13/23 8.7 Vitals: T99.1, P114, RR 20 BP 71/46 Treatment: vaginal packing, 1 unit PRBC, and fluid bolus Is there an additional diagnosis that is clinically appropriate for this patient? [ X ] Hypovolemic Shock [ ] Shock other specified type [ ] No additional diagnosis/Not clinically significant [ ] Unable to determine [ ] Other, please specify MTDD
== END 2023-09-13 09:50 | disposition home or self-care (01) | DRG 919 ==
LOC: EC 16:14 → 5NMEDONC 18:38 → 4FBP 20:07
PROVIDERS: ADMIT Obstetrics & Gynecology; ATTEND Obstetrics & Gynecology
PROC: 30233N1 Transfusion of Nonautologous Red Blood Cells into Peripheral Vein, Percutaneous Approach (ICD-10-PCS; principal; 2023-09-11)
PROC: 2Y44X5Z Packing of Female Genital Tract using Packing Material (ICD-10-PCS; 2023-09-11)
DX: N99.820 Postprocedural hemorrhage of a genitourinary system organ or structure following a genitourinary system procedure (principal); R57.1 Hypovolemic shock; D62 Acute posthemorrhagic anemia; N93.9 Abnormal uterine and vaginal bleeding, unspecified; F41.9 Anxiety disorder, unspecified; N99.840 Postprocedural hematoma of a genitourinary system organ or structure following a genitourinary system procedure; L73.2 Hidradenitis suppurativa; J45.909 Unspecified asthma, uncomplicated; Z90.710 Acquired absence of both cervix and uterus; Z98.891 History of uterine scar from previous surgery; Z88.8 Allergy status to other drugs, medicaments and biological substances; Z88.5 Allergy status to narcotic agent; Z88.7 Allergy status to serum and vaccine
CPT/HCPCS: 36415; 36430; 74177; 80053; 83605; 83735; 84100; 84484; 85025; 85610; 85730; 86850; 86900; 86901; 86920; 93005; 96365; 96375; 99291

== ENCOUNTER → 2023-09-21 | Outpatient (CLI) | payer BC ==
[~2023-09-21] MED LIST: IRON SUCROSE 200 MG in SODIUM CHLORIDE 0.9% 100 ML IVPB NR; SODIUM CHLORIDE 0.9% 500 ML 500 ML in EMPTY BAG 1 BAG IV PRN
[2023-09-21 13:37] VITALS: BP 114/79; PULSE 80; RESP 16; TEMP 98.3
== END ==
LOC: PROCWHC3 12:45
PROVIDERS: ATTEND Family Medicine
DX: D50.9 Iron deficiency anemia, unspecified (principal)
CPT/HCPCS: 96365; J1756

== ENCOUNTER → 2023-11-10 | Outpatient (CLI) | payer BC ==
[2023-11-10 16:55] LABS: Basophils # (A) 0.03 X 10*3/uL (0.00-0.10); Basophils % (A) 0.5 %; Eosinophils % (A) 1.5 %; HCT 37.7 % (37.2-46.3); HGB 11.6 g/dL (12.0-15.0); Lymphocytes # (A) 2.78 X 10*3/uL (0.90-5.00); Lymphocytes % (A) 41.9 %; MCH 24.1 pg (27.0-32.0); MCHC 30.8 g/dL (32.0-37.0); MCV 78.2 FL (80.0-97.0); Mean Platelet Volume 10.6 FL (9.5-12.2); Monocytes # (A) 0.51 X 10*3/uL (0.20-1.00); Monocytes % (A) 7.7 %; NRBC Per 100 WBC 0 X 10*3/uL (0.00-0.01); Neutrophils % (A) 48.1 %; Platelet Count 377 X 10*3/uL (140-440); RBC 4.82 X 10*6/uL (4.10-5.20); RDW 12.9 % (11.5-14.5); WBC 6.64 X 10*3/uL (4.50-10.00)
[2023-11-10 17:31] LABS: % Iron Saturation 6.34 (12.00-45.00); ALT 11 U/L (8-44); AST 16 U/L (13-35); Albumin 4.6 g/dL (3.8-4.9); Albumin/Globulin Ratio 1.84 Ratio (1.60-3.17); Alkaline Phosphatase 45 U/L (41-126); BUN/Creat Ratio 13.43 Ratio (12.00-20.00); Blood Urea Nitrogen 9.4 mg/dL (9.0-27.0); C Reactive Protein <0.30 mg/dL (0.00-0.80); Calcium 9.5 mg/dL (8.7-10.3); Carbon Dioxide 23.7 mmol/L (21.6-31.8); Chloride 105 mmol/L (96-109); Ferritin 5.6 ng/mL (10.0-291.0); Globulin 2.5 g/dL (1.6-3.3); Glucose 90 mg/dL (70-110); Iron 32 UG/DL (50-170); Potassium 4.2 mmol/L (3.5-5.5); Sodium 140 mmol/L (135-145); Total Bilirubin 0.5 mg/dL (0.3-1.2); Total Iron Binding Capacity 505 UG/DL (228-460); Total Protein 7.1 g/dL (6.2-8.2)
[2023-11-10 17:53] LABS: Hepatitis B Surface Antigen Nonreactive
== END | disposition home or self-care (01) ==
LOC: LABWHC1 11:33
PROVIDERS: ATTEND Student in an Organized Health Care Education/Training Program
DX: K51.90 Ulcerative colitis, unspecified, without complications (principal); L73.2 Hidradenitis suppurativa
CPT/HCPCS: 36415; 80053; 82728; 83540; 83550; 83993; 85025; 86140; 86480; 86704; 87340

== ENCOUNTER 2024-01-13 21:02 | Emergency (ER) | payer BC ==
[2024-01-13 21:28] LABS: Appearance,Urine Clear (Clear); Bilirubin,Urine Negative (Negative); Blood,Urine Small (Negative); Color,Urine Light Yellow; Glucose,Urine (UA) Negative (Negative); Ketones,Urine Negative (Negative); Leukocyte Esterase,Urine Negative (Negative); Mucus,Urine Rare /hpf; Nitrite,Urine Negative (Negative); Protein,Urine Negative (Negative); RBC,Urine 7 /hpf (0-5); Specific Gravity,Urine 1.017 (1.001-1.035); Squamous Epithelial Cell,Urine 2 /hpf (0-4); Urobilinogen,Urine <2.0 mg/dL (<2.0); WBC,Urine 2 /hpf (0-5)
[2024-01-13 21:35] VITALS: TEMP 98
--- NOTE | 2024-01-13 22:38 | ED ---
Abdominal Pain HPI - General Source: patient, RN notes reviewed Mode of arrival: ambulatory Limitations: no limitations <Chica Morgan - Last Filed: 01/14/24 00:31> <Leslye Carrasquillo - Last Filed: 01/14/24 06:32> - General Chief Complaint: Abdominal Pain Stated Complaint: UTI Abd pain nausea Time Seen by Provider: 01/13/24 22:36 - History of Present Illness Initial Comments: 38-year-old female with history of kidney stones presenting to the ER with left flank pain x 2 hours. States the pain is colicky and radiates into the left side of abdomen. She also admits to dysuria and nausea. States this feels sim ilar to previous stones. She was recently treated for a UTI, yeast infection, and BV and reports all symptoms improved. Denies vaginal bleeding, vaginal discharge, fever, vomiting, diarrhea, constipation. She has a history of a hysterectomy. (Chica Morgan) - Related Data Home Medications Medication Instructions Recorded Confirmed Adalimumab [Humira Pen] 1 injection INJ WEEKLY 09/21/23 09/21/23 Allergies Allergy/AdvReac Type Severity Reaction Status Date / Time brompheniramine Allergy Unknown Verified 09/21/23 13:20 [From Dimetapp (brompheniramine-PPA)] codeine Allergy Unknown Verified 09/21/23 13:20 dimenhydrinate Allergy Unknown Verified 09/21/23 13:20 [From Dramamine] metronidazole [From Flagyl] Allergy Nausea & Verified 01/13/24 21:08 Vomiting phenylpropanolamine Allergy Unknown Verified 09/21/23 13:20 [From Dimetapp (brompheniramine-PPA)] tetanus toxoid, adsorbed Allergy Unknown Verified 09/21/23 13:20 Review of Systems ROS Other: All systems not noted in ROS Statement are negative. <Chica Morgan - Last Filed: 01/14/24 00:31> ROS Other: All systems not noted in ROS Statement are negative. <Leslye Carrasquillo - Last Filed: 01/14/24 06:32> ROS Statement: Those systems with pertinent positive or pertinent negative responses have been documented in the HPI. Past Medical History Past Medical History: Asthma, Cancer Additional Past Medical History / Comment(s): Colitis, HS, Cervical CA History of Any Multi-Drug Resistant Organisms: None Reported Past Surgical History: Section, Hysterectomy Additional Past Surgical History / Comment(s): rhinoplasty Past Anesthesia/Blood Transfusion Reactions: No Reported Reaction Past Psychological History: Anxiety Smoking Status: Never smoker Past Alcohol Use History: None Reported Past Drug Use History: None Reported <Chica Morgan - Last Filed: 01/14/24 00:31> General Exam Limitations: no limitations General appearance: alert, in no apparent distress Head exam: Present: atraumatic, normocephalic, normal inspection Eye exam: Present: normal appearance, PERRL, EOMI. Absent: scleral icterus, conjunctival injection, periorbital swelling ENT exam: Present: normal exam, mucous membranes moist Neck exam: Present: normal inspection. Absent: tenderness, meningismus, lymphadenopathy Respiratory exam: Present: normal lung sounds bilaterally. Absent: respiratory distress, wheezes, rales, rhonchi, stridor Cardiovascular Exam: Present: regular rate, normal rhythm, normal heart sounds. Absent: systolic murmur, diastolic murmur, rubs, gallop, clicks GI/Abdominal exam: Present: soft, normal bowel sounds. Absent: distended, tenderness, guarding, rebound, rigid Extremities exam: Present: normal inspection, full ROM, normal capillary refill. Absent: tenderness, pedal edema, joint swelling, calf tenderness Back exam: Present: normal inspection. Absent: CVA tenderness (R), CVA tenderness (L) Neurological exam: Present: alert, oriented X3, CN II-XII intact Psychiatric exam: Present: normal affect, normal mood Skin exam: Present: warm, dry, intact, normal color. Absent: rash <Chica Morgan - Last Filed: 01/14/24 00:31> Course Vital Signs 01/13/24 01/14/24 01/14/24 21:05 01:55 04:24 Temperature 98 F Pulse Rate 99 71 73 Respiratory 20 16 18 Rate Blood Pressure 123/74 91/52 104/61 O2 Sat by Pulse 99 98 99 Oximetry Medical Decision Making - Lab Data Result diagrams: 01/13/24 23:14 01/13/24 23:14 <Chica Morgan - Last Filed: 01/14/24 00:31> - Lab Data Result diagrams: 01/13/24 23:14 01/13/24 23:14 <Leslye Carrasquillo - Last Filed: 01/14/24 06:32> - Medical Decision Making Was pt. sent in by a medical professional or institution (LIANE Santacruz, BACK END ENGINEER, urgent care, hospital, or retirement...) When possible be specific @ -[No] Did you speak to anyone other than the patient for history (EMS, parent, family, police, friend...)? What history was obtained from this source @ -[No] Did you review nursing and triage notes (agree or disagree)? Why? @ -[I reviewed and agree with nursing and triage notes] Were old charts reviewed (outside hosp., previous admission, EMS record, old EKG, old radiological studies, urgent care reports/EKG's, retirement records)? Report findings @ -[No old charts were reviewed] Differential Diagnosis (chest pain, altered mental status, abdominal pain women, abdominal pain men, vaginal bleeding, weakness, fever, dyspnea, syncope, headache, dizziness, GI bleed, back pain, seizure, CVA, palpatations, mental health, musculoskeletal)? @ -Differential Abdominal Pain Women: Appendicitis, Cholecystitis, diverticulosis, ischemic bowel, pancreatitis, hepatitis, UTI, gastroenteritis, AAA, incarcerated hernia, bowel obstruction, constipation, inflammatory bowel, hepatitis, peptic ulcer disease, splenic infarction, perforated viscus, vulvitis, ovarian torsion, PID, kidney stone, placenta abruption, this is not meant to be an all-inclusive list EKG interpreted by me (3pts min.). @ -None X-rays interpreted by me (1pt min.). @ -[None done] CT interpreted by me (1pt min.). @ -CT pending at time of signout U/S interpreted by me (1pt. min.). @ -[None done] What testing was considered but not performed or refused? (CT, X-rays, U/S, labs)? Why? @ -[None] What meds were considered but not given or refused? Why? @ -[None] Did you discuss the management of the patient with other professionals (professionals i.e. LIANE Santacruz, BACK END ENGINEER, lab, RT, psych nurse, social staff worker, speedometer inspector, teacher, health officer, keycase assembler)? Give summary @ -[No] Was smoking cessation discussed for >3mins.? @ -[No] Was critical care preformed (if so, how long)? @ -[No] Were there social determinants of health that impacted care today? How? (Homelessness, low income, unemployed, alcoholism, drug addiction, transportation, low edu. Level, literacy, decrease access to med. care, shelter, rehab)? @ -[No] Was there de-escalation of care discussed even if they declined (Discuss DNR or withdrawal of care, Hospice)? DNR status @ -[No] What co-morbidities impacted this encounter? (DM, HTN, Smoking, COPD, CAD, Cancer, CVA, ARF, Chemo, Hep., AIDS, mental health diagnosis, sleep apnea, morbid obesity)? @ -[None] Was patient admitted / discharged? Hospital course, mention meds given and route, prescriptions, significant lab abnormalities, going to OR and other pertinent info. @ -Patient was seen and evaluated for left flank pain. Patient's vital signs are within normal limits, abdomen is nontender upon palpation. CT of abdomen pelvis pending at the time of patient's signout, performed to rule out kidney stones. Lab work remarkable for mildly elevated white blood cell count at 12. Urine remarkable for blood, negative for bacteria. Patient was given IV fluids, Toradol, and Zofran for pain and nausea. Case signed out to (Chica Morgan) Care was signed out to me, patient had presented with back pain urinalysis showed some hematuria patient did have a history of kidney stones a CT scan was ordered. CT was unremarkable. Patient received pain medications and was slee ping comfortably upon my evaluation. Patient did note that a few weeks ago she was treated for BV and UTI. She received antibiotics and developed a yeast infection she took Diflucan 3 times and use topical Monistat but she complains of continued vaginal discomfort. Patient states she has not been sexually active since prior to her hysterectomy in July. She has no concern for sexually transmitted infections. Results were discussed with the patient who is comfortable with plan for discharge home with supportive care. Patient plans to follow-up outpatient with gynecology regarding her vaginal discomfort. Physical Exam GENERAL: Patient is well-developed and well-nourished. Patient is nontoxic and well-hydrated and is in no distress. HENT: Normocephalic, Atraumatic. EYES: PERRL, EOMI PULMONARY: Unlabored respirations CARDIOVASCULAR: Warm and well-perfused extremities ABDOMEN: Soft and nontender with normal bowel sounds. SKIN: Skin is clear : External genitalia noted to have a small skin ulceration between the labia majora and labia minora on the left, this is tender and nonhealing. Patient has no concern for sexually transmitted infections no sexual activity in the past 6 months. There is no vaginal discharge NEUROLOGIC: Patient is alert and oriented x3. Moving all extremities spontaneously MUSCULOSKELETAL: Normal extremities with adequate strength and full range of motion. No lower extremity swelling or edema. No calf tenderness. PSYCHIATRIC: Normal psychiatric evaluation. CT interpreted by me (1pt min.). @ -No obvious hydronephrosis or kidney stones, no free air or free fluid U/S interpreted by me (1pt. min.). @ -None done What testing was considered but not performed or refused? (CT, X-rays, U/S, labs)? Why? @ -None What meds were considered but not given or refused? Why? @ -None Did you discuss the management of the patient with other professionals (professionals i.e. , PA, BACK END ENGINEER, lab, RT, psych nurse, social staff worker, speedometer inspector, teacher, health officer, keycase assembler)? Give summary @ -No Was smoking cessation discussed for >3mins.? @ -No Was critical care preformed (if so, how long)? @ -No Were there social determinants of health that impacted care today? How? (Homelessness, low income, unemployed, alcoholism, drug addiction, transportation, low edu. Level, literacy, decrease access to med. care, shelter, rehab)? @ -No Was there de-escalation of care discussed even if they declined (Discuss DNR or withdrawal of care, Hospice)? DNR status @ -No What co-morbidities impacted this encounter? (DM, HTN, Smoking, COPD, CAD, Cancer, CVA, ARF, Chemo, Hep., AIDS, mental health diagnosis, sleep apnea, morbid obesity)? @ -None Was patient admitted / discharged? Hospital course, mention meds given and route, prescriptions, significant lab abnormalities, going to OR and other pertinent info. @ -Discharged Undiagnosed new problem with uncertain prognosis? @ -No Drug Therapy requiring intensive monitoring for toxicity (Heparin, Nitro, Insulin, Cardizem)? @ -No Were any procedures done? @ -No Diagnosis/symptom? @ -Flank pain Acute, or Chronic, or Acute on Chronic? @ -Acute Uncomplicated (without systemic symptoms) or Complicated (systemic symptoms)? @ -Default Side effects of treatment? @ -No Exacerbation, Progression, or Severe Exacerbation? @ -No Poses a threat to life or bodily function? How? (Chest pain, [place], [place], pneumonia, PE, COPD, DKA, ARF, appy, cholecystitis, CVA, Diverticulitis, Homicidal, Suici apryl, threat to staff... and all critical care pts) @ -No (Leslye Carrasquillo) - Lab Data Lab Results 01/13/24 01/13/24 01/13/24 Range/Units 21:12 23:14 23:14 WBC 12.0 H (3.8-10.6) k/uL RBC 4.67 (3.80-5.40) m/uL Hgb 12.2 (11.4-16.0) gm/dL Hct 37.1 (34.0-46.0) % MCV 79.5 L (80.0-100.0) fL MCH 26.1 (25.0-35.0) pg MCHC 32.9 (31.0-37.0) g/dL RDW 18.6 H (11.5-15.5) % Plt Count 229 (150-450) k/uL MPV 7.7 Neutrophils % 78 % Lymphocytes % 15 % Monocytes % 4 % Eosinophils % 1 % Basophils % 0 % Neutrophils # 9.3 H (1.3-7.7) k/uL Lymphocytes # 1.8 (1.0-4.8) k/uL Monocytes # 0.5 (0-1.0) k/uL Eosinophils # 0.2 (0-0.7) k/uL Basophils # 0.0 (0-0.2) k/uL Anisocytosis Slight Microcytosis Slight Sodium 138 (137-145) mmol/L Potassium 3.5 (3.5-5.1) mmol/L Chloride 108 H (98-107) mmol/L Carbon Dioxide 26 (22-30) mmol/L Anion Gap 4 mmol/L BUN 12 (7-17) mg/dL Creatinine 0.60 (0.52-1.04) mg/dL Est GFR (CKD-EPI)AfAm >90 (>60 ml/min/1.73 sqM) Est GFR (CKD-EPI)NonAf >90 (>60 ml/min/1.73 sqM) Glucose 97 (74-99) mg/dL Plasma Lactic Acid Ronnie (0.7-2.0) mmol/L Calcium 9.0 (8.4-10.2) mg/dL Total Bilirubin 0.4 (0.2-1.3) mg/dL AST 20 (14-36) U/L ALT 16 (4-34) U/L Alkaline Phosphatase 49 (38-126) U/L Total Protein 6.1 L (6.3-8.2) g/dL Albumin 3.7 (3.5-5.0) g/dL Lipase 163 (23-300) U/L Urine Color Light Yellow Urine Appearance Clear (Clear) Urine pH 7.0 (5.0-8.0) Ur Specific [place] 1.017 (1.001-1.035) Urine Protein Negative (Negative) Urine Glucose (UA) Negative (Negative) Urine Ketones Negative (Negative) Urine Blood Small H (Negative) Urine Nitrite Negative (Negative) Urine Bilirubin Negative (Negative) Urine Urobilinogen <2.0 (<2.0) mg/dL Ur Leukocyte Esterase Negative (Negative) Urine RBC 7 H (0-5) /hpf Urine WBC 2 (0-5) /hpf Ur Squamous Epith Cells 2 (0-4) /hpf Urine Mucus Rare H (None) /hpf 01/13/24 Range/Units 23:14 WBC (3.8-10.6) k/uL RBC (3.80-5.40) m/uL Hgb (11.4-16.0) gm/dL Hct (34.0-46.0) % MCV (80.0-100.0) fL MCH (25.0-35.0) pg MCHC (31.0-37.0) g/dL RDW (11.5-15.5) % Plt Count (150-450) k/uL MPV Neutrophils % % Lymphocytes % % Monocytes % % Eosinophils % % Basophils % % Neutrophils # (1.3-7.7) k/uL Lymphocytes # (1.0-4.8) k/uL Monocytes # (0-1.0) k/uL Eosinophils # (0-0.7) k/uL Basophils # (0-0.2) k/uL Anisocytosis Microcytosis Sodium (137-145) mmol/L Potassium (3.5-5.1) mmol/L Chloride (98-107) mmol/L Carbon Dioxide (22-30) mmol/L Anion Gap mmol/L BUN (7-17) mg/dL Creatinine (0.52-1.04) mg/dL Est GFR (CKD-EPI)AfAm (>60 ml/min/1.73 sqM) Est GFR (CKD-EPI)NonAf (>60 ml/min/1.73 sqM) Glucose (74-99) mg/dL Plasma Lactic Acid Ronnie 1.1 (0.7-2.0) mmol/L Calcium (8.4-10.2) mg/dL Total Bilirubin (0.2-1.3) mg/dL AST (14-36) U/L ALT (4-34) U/L Alkaline Phosphatase (38-126) U/L Total Protein (6.3-8.2) g/dL Albumin (3.5-5.0) g/dL Lipase (23-300) U/L Urine Color Urine Appearance (Clear) Urine pH (5.0-8.0) Ur Specific [place] (1.001-1.035) Urine Protein (Negative) Urine Glucose (UA) (Negative) Urine Ketones (Negative) Urine Blood (Negative) Urine Nitrite (Negative) Urine Bilirubin (Negative) Urine Urobilinogen (<2.0) mg/dL Ur Leukocyte Esterase (Negative) Urine RBC (0-5) /hpf Urine WBC (0-5) /hpf Ur Squamous Epith Cells (0-4) /hpf Urine Mucus (None) /hpf Disposition <Chica Morgan - Last Filed: 01/14/24 00:31> Is patient prescribed a controlled substance at d/c from ED?: No <Leslye Carrasquillo - Last Filed: 01/14/24 06:32> Clinical Impression: Right flank pain Disposition: HOME SELF-CARE Condition: Stable Instructions (If sedation given, give patient instructions): Flank Pain (ED) Referrals: Humberto Vanessa MD [Primary Care Provider] - 1-2 days
[2024-01-13] MEDS: SODIUM CHLORIDE 0.9% 1,000 ML IV STA (23:05)
[2024-01-13] MEDS: ONDANSETRON 4 MG/2 ML VIAL IVP STA (23:06)
[2024-01-13] MEDS: KETOROLAC 15 MG/ML 1 ML VIAL IVP STA (23:06)
[2024-01-13 23:26] LABS: Anisocytosis Slight; Basophils % (A) 0 %; Eosinophils # (A) 0.2 k/uL (0-0.7); Eosinophils % (A) 1 %; HCT 37.1 % (34.0-46.0); HGB 12.2 gm/dL (11.4-16.0); Lymphocytes # (A) 1.8 k/uL (1.0-4.8); Lymphocytes % (A) 15 %; MCH 26.1 pg (25.0-35.0); MCHC 32.9 g/dL (31.0-37.0); MCV 79.5 fL (80.0-100.0); Mean Platelet Volume 7.7; Microcytosis Slight; Monocytes # (A) 0.5 k/uL (0-1.0); Monocytes % (A) 4 %; Neutrophils # (A) 9.3 k/uL (1.3-7.7); Neutrophils % (A) 78 %; Platelet Count 229 k/uL (150-450); RBC 4.67 m/uL (3.80-5.40); RDW 18.6 % (11.5-15.5)
[2024-01-13 23:37] LABS: ALT 16 U/L (4-34); AST 20 U/L (14-36); African American GFR (CKD) >90 (>60 ml/min/1.73 sqM); Albumin 3.7 g/dL (3.5-5.0); Alkaline Phosphatase 49 U/L (38-126); Anion Gap 4 mmol/L; Blood Urea Nitrogen 12 mg/dL (7-17); Carbon Dioxide 26 mmol/L (22-30); Chloride 108 mmol/L (98-107); Glucose 97 mg/dL (74-99); Lipase 163 U/L (23-300); Non-African American GFR(CKD) >90 (>60 ml/min/1.73 sqM); Potassium 3.5 mmol/L (3.5-5.1); Sodium 138 mmol/L (137-145); Total Bilirubin 0.4 mg/dL (0.2-1.3); Total Protein 6.1 g/dL (6.3-8.2)
--- NOTE | 2024-01-14 03:36 | CT ---
EXAM: CT Abdomen and Pelvis Without Intravenous Contrast CLINICAL HISTORY: ITS.REASON CT Reason: left flank pain TECHNIQUE: Axial computed tomography images of the abdomen and pelvis without intravenous contrast. CTDI is 12.3 mGy and DLP is 697.1 mGy-cm. This CT exam was performed using one or more of the following dose reduction techniques: automated exposure control, adjustment of the mA and/or kV according to patient size, and/or use of iterative reconstruction technique. COMPARISON: 09/11/2023 FINDINGS: ABDOMEN: Liver: Unremarkable. Gallbladder and bile ducts: Removed. Pancreas: No ductal dilation. Spleen: Unremarkable. Adrenals: Unremarkable. Kidneys and ureters: No obstructing stones. No hydronephrosis. Stomach and bowel: No bowel obstruction. No bowel wall thickening. Prior gastric surgery. PELVIS: Appendix: No evidence of appendicitis. Bladder: No stones. Reproductive: Unremarkable. ABDOMEN and PELVIS: Intraperitoneal space: Unremarkable. Bones/joints: No acute fractures. Soft tissues: Unremarkable. Vasculature: No abdominal aortic aneurysm. Lymph nodes: No enlarged lymph nodes. IMPRESSION: No acute findings. No hydronephrosis or nephrolithiasis. Increased stool burden.
[2024-01-14 04:33] VITALS: BP 104/61; PULSE 73; RESP 18
== END 2024-01-14 04:31 | disposition home or self-care (01) ==
LOC: EC 21:02
DX: R10.9 Unspecified abdominal pain (principal); Z88.1 Allergy status to other antibiotic agents; Z88.5 Allergy status to narcotic agent; Z88.7 Allergy status to serum and vaccine; Z88.8 Allergy status to other drugs, medicaments and biological substances
CPT/HCPCS: 36415; 80053; 83605; 83690; 85025; 81001; 74176; 99284; 96374; 96375; 96361; J2405; J1885

== ENCOUNTER 2024-05-13 21:23 | Emergency (ER) | payer BC ==
--- NOTE | 2024-05-13 22:04 | ED ---
General Adult HPI - General Chief complaint: Fever Stated complaint: Rash, Fever Time Seen by Provider: 05/13/24 21:38 Source: patient Mode of arrival: ambulatory Limitations: no limitations - History of Present Illness Initial comments: Pt is a pleasant 38-year-old female past medical history of autoimmune disease on immunosuppressive's presenting today for low-grade fever and rash are along left side of abdomen. Patient states that she did not injection of her autoimmune medication unless that her abdomen and shortly after began having an erythematous rash near the site of injection. She endorses soreness and feeling like the area is bruised. No trauma to this. While at dinner this evening she began experiencing subjective fevers and upon arriving home noted her temperature to be 100 degrees. She did take Tylenol 1000 mg at 530 this evening and an Aleve at 745. States she feels like her fever is coming down but does still endorse pain along the left side of her ribs. She denies any shortness of breath, endorses nonproductive cough, no sore throat or congestion, no abdominal pain nausea vomiting or diarrhea, no UTI symptoms. - Related Data Home Medications Medication Instructions Recorded Confirmed Adalimumab [Humira Pen] 1 injection INJ WEEKLY 09/21/23 09/21/23 Previous Rx's Medication Instructions Recorded Cephalexin [Keflex] 500 mg PO Q6HR 7 Days #30 cap 05/14/24 Allergies Allergy/AdvReac Type Severity Reaction Status Date / Time brompheniramine Allergy Unknown Verified 05/13/24 21:37 [From Dimetapp (brompheniramine-PPA)] codeine Allergy Unknown Verified 05/13/24 21:37 dimenhydrinate Allergy Unknown Verified 05/13/24 21:37 [From Dramamine] metronidazole [From Flagyl] Allergy Nausea & Verified 05/13/24 21:37 Vomiting phenylpropanolamine Allergy Unknown Verified 05/13/24 21:37 [From Dimetapp (brompheniramine-PPA)] tetanus toxoid, adsorbed Allergy Unknown Verified 05/13/24 21:37 Review of Systems ROS Statement: Those systems with pertinent positive or pertinent negative responses have been documented in the HPI. ROS Other: All systems not noted in ROS Statement are negative. Past Medical History Past Medical History: Asthma, Cancer Additional Past Medical History / Comment(s): Colitis, HS, Cervical CA History of Any Multi-Drug Resistant Organisms: None Reported Past Surgical History: Section, Hysterectomy Additional Past Surgical History / Comment(s): rhinoplasty Past Anesthesia/Blood Transfusion Reactions: No Reported Reaction Past Psychological History: Anxiety Smoking Status: Never smoker Past Alcohol Use History: None Reported Past Drug Use History: None Reported General Exam - General Exam Comments Initial Comments: PE: CONSTITUTIONAL: No apparent distress, well appearing SKIN: warm, dry, no jaundice, erythematous raised macular rash with irregular borders along left side of abdomen that crosses the midline towards the right side of the abdomen, no crusting, vesicular lesions, pustules or exudates, crosses multiple dermatomes, tender to palpation EYES: Pupils are equally round, extraocular movements intact without nystagmus, clear conjunctiva, non-icteric sclera HENT: Normocephalic, atraumatic, moist mucus membranes, oropharynx clear without exudates, no oropharyngeal edema tongue or uvular swelling NECK: , Full range of motion, normal appearance PULMONARY: Clear to auscultation without wheezes, rhonchi, or rales, normal excursion, no accessory muscle use and no stridor CARDIOVASCULAR: Regular rate, rhythm, normal S1 and S2. No appreciated murmurs, rubs or gallops. Strong radial pulses with intact distal perfusion. No lower extremity edema GASTROINTESTINAL: Soft, localized tenderness palpation along area of rash, non- distended, no palpable masses, no rebound or guarding. No hepatosplenomegaly GENITOURINARY: MUSCULOSKELETAL: Extremities have no gross deformity, no edema, redness, or swelling. No calf swelling ot TTP. NEUROLOGIC:_a/o x 3, GCS 15, normal mentation and speech. Moves all extremities x 4 without motor or sensory deficit PSYCHIATRIC:_normal mood and affect, thought process is clear and linear Limitations: no limitations Course Vital Signs 05/13/24 05/14/24 21:34 00:38 Temperature 99.7 F H 98.7 F Pulse Rate 122 H 87 Respiratory 20 18 Rate Blood Pressure 147/90 128/74 O2 Sat by Pulse 98 97 Oximetry Medical Decision Making - Medical Decision Making Was pt. sent in by a medical professional or institution (, PA, DIRECTOR FUNDS DEVELOPMENT, urgent care, hospital, or senior living...) When possible be specific @ -No Did you speak to anyone other than the patient for history (EMS, parent, family, police, friend...)? What history was obtained from this source @ -No Did you review nursing and triage notes (agree or disagree)? Why? @ -I reviewed and agree with nursing and triage notes Were old charts reviewed (outside hosp., previous admission, EMS record, old EKG, old radiological studies, urgent care reports/EKG's, senior living records)? Report findings @ -Reviewed old charts,, CT abdomen pelvis done on 01/14/2024 due to left flank pain showed no acute findings, no hydronephrosis or nephrolithiasis. Did comment on increased stool burden Differential Diagnosis (chest pain, altered mental status, abdominal pain women, abdominal pain men, vaginal bleeding, weakness, fever, dyspnea, syncope, headache, dizziness, GI bleed, back pain, seizure, CVA, palpatations, mental health, musculoskeletal)? @ -Differential diagnosis remains broad however top considerations include contact dermatitis, cellulitis, herpes zoster, viral exanthem, allergic reaction this is not all-inclusive list EKG interpreted by me (3pts min.). @ -As above X-rays interpreted by me (1pt min.). @ -None done CT interpreted by me (1pt min.). @ -None done U/S interpreted by me (1pt. min.). @ -None done What testing was considered but not performed or refused? (CT, X-rays, U/S, labs)? Why? @ -None What meds were considered but not given or refused? Why? @ -None Did you discuss the management of the patient with other professionals (professionals i.e. , PA, DIRECTOR FUNDS DEVELOPMENT, lab, RT, psych nurse, renal social worker, toll line mechanic, teacher, disability liaison officer, pillowcase sewer)? Give summary @ -No Was smoking cessation discussed for >3mins.? @ -No Was critical care preformed (if so, how long)? @ -No Were there social determinants of health that impacted care today? How? (Homelessness, low income, unemployed, alcoholism, drug addiction, transportation, low edu. Level, literacy, decrease access to med. care, prison, rehab)? @ -No Was there de-escalation of care discussed even if they declined (Discuss DNR or withdrawal of care, Hospice)? @ -No What co-morbidities impacted this encounter? (DM, HTN, Smoking, COPD, CAD, Cancer, CVA, ARF, Chemo, Hep., AIDS, mental health diagnosis, sleep apnea, morbid obesity)? @Autoimmune disease Was patient admitted / discharged? Hospital course, mention meds given and route, prescriptions, significant lab abnormalities, going to OR and other pertinent info. @ -Hospital course discharged Patient is a pleasant 38-year-old female with a history of autoimmune disease multiple allergies presenting today for fever and rash that began this afternoon. On my assessment patient is well-appearing and in no acute distress. A raised erythematous macular rash with irregular borders is noted on the left side of the abdomen crossing multiple dermatomes and crossing the midline towards the right side of the abdomen. No palpable masses underneath the rash is tender to palpation. Patient has no wheezing, no difficulty breathing, no stridor, is neurologically intact, no oropharyngeal edema, no hyperactive bowel sounds. Differential diagnosis as above. I suspect most likely an allergic reaction to patient's new medication. I did discuss with patient plan to treat with steroids, Benadryl and antibiotics, given her well appearance and localized reaction, I disucssed with her that I do not feel labs indicated at this point however pt was concerned due to her autoimmune status and requested basic labs. I feel this is reaasonable, CBC, CMP, heterophile ab test, cephed ordered. Will give dose of ancef, decadron, benadryl. Pt agreeable with POC. Labs reviewed. Slight leukocytosis with white blood cell count of 15. Otherwise grossly within normal limits. Abnormal values not concerning for acute pathology related to presenting complaint. Updated patient finding of negative heterophile antibody, slightly elevated white blood cell count, otherwise labs reassuring. I reexamined the patient's rash has improved, there is less erythema present. She did endorse body aches so Tylenol was ordered peer discussed plan for discharge with [facility] out of concern for potential cellulitis. Patient agreeable plan. In my medical judgment there is currently no evidence of an immediate life- threatening or surgical condition. Discharge is therefore indicated at this time. Discharge treatment instructions, follow up instructions, and appropriate emergency department return precautions were discussed with the patient and/or medical decision maker. Patient and/or medical decision maker expressed understanding of and agreed with the treatment plan, follow up instructions, and emergency department return precaution. All patient's and/or medical decision maker's questions were answered. The patient was advised that a small risk still exists that a serious condition could develop and was therefore instructed to return to the ED for any changes in symptoms, persistent symptoms, inability to obtain proper follow-up or for any further concerns. Patient received verbal and written instructions for this condition. Undiagnosed new problem with uncertain prognosis? @ -No Drug Therapy requiring intensive monitoring for toxicity (Heparin, Nitro, Insulin, Cardizem)? @ -No Were any procedures done? @ -No Diagnosis/symptom? @ -Fever, rash Acute, or Chronic, or Acute on Chronic? @ -Acute Uncomplicated (without systemic symptoms) or Complicated (systemic symptoms)? @Complicated Side effects of treatment? @ -No Exacerbation, Progression, or Severe Exacerbation? @ -No Poses a threat to life or bodily function? How? (Chest pain, [place], [place], pneumonia, PE, COPD, DKA, ARF, appy, cholecystitis, CVA, Diverticulitis, Homicidal, Suicidal, threat to staff... and all critical care pts) @ -No - Lab Data Result diagrams: 05/13/24 22:39 05/13/24 22:39 Lab Results 05/13/24 05/13/24 05/13/24 Range/Units 22:39 22:39 22:39 WBC 14.0 H (3.8-10.6) k/uL RBC 4.64 (3.80-5.40) m/uL Hgb 13.5 (11.4-16.0) gm/dL Hct 40.3 (34.0-46.0) % MCV 86.9 (80.0-100.0) fL MCH 29.2 (25.0-35.0) pg MCHC 33.6 (31.0-37.0) g/dL RDW 12.4 (11.5-15.5) % Plt Count 261 (150-450) k/uL MPV 6.9 Neutrophils % 82 % Lymphocytes % 11 % Monocytes % 4 % Eosinophils % 2 % Basophils % 0 % Neutrophils # 11.5 H (1.3-7.7) k/uL Lymphocytes # 1.6 (1.0-4.8) k/uL Monocytes # 0.5 (0-1.0) k/uL Eosinophils # 0.3 (0-0.7) k/uL Basophils # 0.0 (0-0.2) k/uL Sodium 135 L (137-145) mmol/L Potassium 3.9 (3.5-5.1) mmol/L Chloride 104 (98-107) mmol/L Carbon Dioxide 25 (22-30) mmol/L Anion Gap 6 mmol/L BUN 16 (7-17) mg/dL Creatinine 0.67 (0.52-1.04) mg/dL Est GFR (CKD-EPI)AfAm >90 (>60 ml/min/1.73 sqM) Est GFR (CKD-EPI)NonAf >90 (>60 ml/min/1.73 sqM) Glucose 89 (74-99) mg/dL Calcium 9.3 (8.4-10.2) mg/dL Total Bilirubin 0.5 (0.2-1.3) mg/dL AST 22 (14-36) U/L ALT 13 (4-34) U/L Alkaline Phosphatase 48 (38-126) U/L Total Protein 6.4 (6.3-8.2) g/dL Albumin 4.0 (3.5-5.0) g/dL Heterophile Antibody Negative (Negative) Influenza Type A (PCR) (Not Detectd) Influenza Type B (PCR) (Not Detectd) RSV (PCR) (Not Detectd) SARS-CoV-2 (PCR) (Not Detectd) 05/13/24 Range/Units 22:39 WBC (3.8-10.6) k/uL RBC (3.80-5.40) m/uL Hgb (11.4-16.0) gm/dL Hct (34.0-46.0) % MCV (80.0-100.0) fL MCH (25.0-35.0) pg MCHC (31.0-37.0) g/dL RDW (11.5-15.5) % Plt Count (150-450) k/uL MPV Neutrophils % % Lymphocytes % % Monocytes % % Eosinophils % % Basophils % % Neutrophils # (1.3-7.7) k/uL Lymphocytes # (1.0-4.8) k/uL Monocytes # (0-1.0) k/uL Eosinophils # (0-0.7) k/uL Basophils # (0-0.2) k/uL Sodium (137-145) mmol/L Potassium (3.5-5.1) mmol/L Chloride (98-107) mmol/L Carbon Dioxide (22-30) mmol/L Anion Gap mmol/L BUN (7-17) mg/dL Creatinine (0.52-1.04) mg/dL Est GFR (CKD-EPI)AfAm (>60 ml/min/1.73 sqM) Est GFR (CKD-EPI)NonAf (>60 ml/min/1.73 sqM) Glucose (74-99) mg/dL Calcium (8.4-10.2) mg/dL Total Bilirubin (0.2-1.3) mg/dL AST (14-36) U/L ALT (4-34) U/L Alkaline Phosphatase (38-126) U/L Total Protein (6.3-8.2) g/dL Albumin (3.5-5.0) g/dL Heterophile Antibody (Negative) Influenza Type A (PCR) Not Detected (Not Detectd) Influenza Type B (PCR) Not Detected (Not Detectd) RSV (PCR) Not Detected (Not Detectd) SARS-CoV-2 (PCR) Not Detected (Not Detectd) Disposition Clinical Impression: Fever, Rash Disposition: HOME SELF-CARE Condition: Good Instructions (If sedation given, give patient instructions): Fever in Adults (ED) Additional Instructions: Every disease is a spectrum and a small chance still exists that a serious condition could develop, for this reason, please monitor yourself closely for new, changing or worsening symptoms, symptoms that persist or do not improve beyond 48 hours, fever for greater than 4 days, uncontrolled pain, difficulty in breathing, chest pain, blistering rash, inability to tolerate/keep down fluids or your medications, inability to follow up with outpatient providers as instructed and should you experience these symptoms or should you have any further concerns for your wellbeing please return to the ED or call 911 immediately. PLEASE call your primary care physician as soon as possible to arrange / discuss plan for followup appointment. Appointment in the next 1-3 days is strongly encouraged if possible. PLEASE let us know here before you leave if there is anything further we can do to be of any assistance. Take care and feel Better! Prescriptions: Cephalexin [Keflex] 500 mg PO Q6HR 7 Days #30 cap Is patient prescribed a controlled substance at d/c from ED?: No Referrals: Humberto Vanessa MD [Primary Care Provider] - 1-2 days
[2024-05-13] MEDS: dexAMETHasone 2 MG TAB PO STA (22:49)
[2024-05-13 22:51] LABS: Basophils % (A) 0 %; Eosinophils # (A) 0.3 k/uL (0-0.7); Eosinophils % (A) 2 %; HCT 40.3 % (34.0-46.0); HGB 13.5 gm/dL (11.4-16.0); Lymphocytes # (A) 1.6 k/uL (1.0-4.8); Lymphocytes % (A) 11 %; MCH 29.2 pg (25.0-35.0); MCHC 33.6 g/dL (31.0-37.0); MCV 86.9 fL (80.0-100.0); Mean Platelet Volume 6.9; Monocytes # (A) 0.5 k/uL (0-1.0); Monocytes % (A) 4 %; Neutrophils # (A) 11.5 k/uL (1.3-7.7); Neutrophils % (A) 82 %; Platelet Count 261 k/uL (150-450); RBC 4.64 m/uL (3.80-5.40); RDW 12.4 % (11.5-15.5)
[2024-05-13] MEDS: diphenhydrAMINE 50 MG CAP PO STA (22:55)
[2024-05-13] MEDS: diphenhydrAMINE 50 MG/ML 1 ML VIAL IVP STA (22:56)
[2024-05-13] MEDS: DEXAMETHASONE SOD PHOSPHATE 10 MG/ML 1 ML VIAL IVP STA (22:56)
[2024-05-13] MEDS: SODIUM CHLORIDE 0.9% 1,000 ML IV STA (22:56)
[2024-05-13 23:10] LABS: ALT 13 U/L (4-34); AST 22 U/L (14-36); African American GFR (CKD) >90 (>60 ml/min/1.73 sqM); Alkaline Phosphatase 48 U/L (38-126); Anion Gap 6 mmol/L; Blood Urea Nitrogen 16 mg/dL (7-17); Calcium 9.3 mg/dL (8.4-10.2); Carbon Dioxide 25 mmol/L (22-30); Chloride 104 mmol/L (98-107); Glucose 89 mg/dL (74-99); Non-African American GFR(CKD) >90 (>60 ml/min/1.73 sqM); Potassium 3.9 mmol/L (3.5-5.1); Sodium 135 mmol/L (137-145); Total Bilirubin 0.5 mg/dL (0.2-1.3); Total Protein 6.4 g/dL (6.3-8.2)
[2024-05-14] MEDS: ACETAMINOPHEN TAB 500 MG TAB PO STA (00:25)
[2024-05-14 00:39] VITALS: BP 128/74; PULSE 87; RESP 18; TEMP 98.7
== END 2024-05-14 00:39 | disposition home or self-care (01) ==
LOC: EC 21:23
CPT/HCPCS: 36415; 80053; 85025; 86308; 87636; 96361; 96365; 99283